=== PATIENT | female | born 1995 | race African-American/Black ===

== ENCOUNTER 2020-11-03 09:02 | Emergency (ER) | payer OTHER ==
--- NOTE | 2020-11-03 09:31 | ER Document Report ---
ED GI/ - General Chief Complaint: Abdominal Pain Stated Complaint: ABDOMINAL CRAMPING Time Seen by Provider: 11/03/20 09:30 Mode of Arrival: Ambulatory Information source: Patient Notes: 25-year-old black female arrives with chief complaint of upper abdominal pain at 08 20 as she was sitting on her couch. Patient is 19 weeks gravid. She is with a 4-year-old and 46-qnihx-yol child at home. She is and she called her [facility] doctor [facility] and they advised her to lay on her left side. Her symptoms resolved. Her symptoms consisted of a 5 out of 10 crampy diffuse pain. No other family members got any Covid symptoms cough or cold or constipation or diarrhea. Past medical history on this patient includes preeclampsia with her last and also asthma as a child and MRSA for right breast lesion many years ago TRAVEL OUTSIDE OF THE [place] IN LAST 30 DAYS: No - HPI Patient complains to provider of: Abdominal pain, . No: Diarrhea, Dysuria, Feeding tube problem, Flank pain, Chris catheter problem, Hematuria, Missed/Late menses, Pelvic pain, Urinary retention, Vaginal bleeding, Vaginal discharge, Vaginal pain, Vomiting Onset: This morning Timing/Duration: Sudden Quality of pain: Achy Severity at maximum: Mild Pain Level: 1 Context: . denies: Bad food, Lifting, Out of the country travel, Recent trauma Location: LUQ, RUQ. No: Chest pain, Epigastric, LLQ, RLQ, Left flank, Right flank, Low back, Suprapubic, Pelvis, Vaginal, Vulvar, Rectal Vaginal bleeding (Compared to normal period): None : 3 Para: 2 - Related Data Allergies/Adverse Reactions: No Known Allergies Allergy (Verified 04/03/15 18:56) Past Medical History - General Information source: Patient - Social History Smoking Status: Never Smoker Cigarette use (# per day): No Chew tobacco use (# tins/day): No Smoking Education Provided: No Frequency of alcohol use: None Drug Abuse: None Lives with: Family Family History: Reviewed & Not Pertinent Patient has suicidal ideation: No Patient has homicidal ideation: No Pulmonary Medical History: Reports: Hx Asthma - Immunizations Hx Diphtheria, Pertussis, Tetanus Vaccination: Yes Review of Systems - Review of Systems Constitutional: See HPI, Weight gain. denies: Chills, Diaphoresis, Fever, Weakness, Weight loss, Recent illness EENT: No symptoms reported Cardiovascular: No symptoms reported Respiratory: No symptoms reported Gastrointestinal: See HPI, Abdominal pain. denies: Diarrhea, Nausea, Vomiting, Constipation Genitourinary: See HPI. denies: Burning, Dysuria, Discharge, Frequency, Flank pain, Hematuria, Incontinence, Pain, Urgency, Retention Female Genitourinary: No symptoms reported Musculoskeletal: No symptoms reported Skin: No symptoms reported Hematologic/Lymphatic: No symptoms reported Neurological/Psychological: No symptoms reported -: Yes All other systems reviewed and negative Physical Exam - Vital signs Vitals: Temp Pulse Resp BP Pulse Ox 98.3 F 109 H 16 132/73 H 97 11/03/20 09:05 11/03/20 09:05 11/03/20 09:05 11/03/20 09:05 11/03/20 09:05 Interpretation: Tachycardic - General General appearance: Appears well, Alert - HEENT Head: Normocephalic, Atraumatic Eyes: Normal Pupils: PERRL - Respiratory Respiratory status: No respiratory distress Chest status: Nontender Breath sounds: Normal Chest palpation: Normal - Cardiovascular Rhythm: Regular Heart sounds: Normal auscultation Murmur: No - Abdominal Inspection: Normal Distension: No distension Bowel sounds: Normal Tenderness: Nontender Organomegaly: No organomegaly - Rectal Hemorrhoids: Other - deferred - Genitourinary External exam: Normal - as per us female - Back Back: Normal, Nontender - Extremities General upper extremity: Normal inspection, Nontender, Normal color, Normal ROM, Normal temperature General lower extremity: Normal inspection, Nontender, Normal color, Normal ROM, Normal temperature, Normal weight bearing. No: All's sign - Neurological Neuro grossly intact: Yes Cognition: Normal Orientation: AAOx4 Norbert Coma Scale Eye Opening: Spontaneous Norbert Coma Scale Verbal: Oriented [place] Coma Scale Motor: Obeys Commands Norbert Coma Scale Total: 15 Speech: Normal Motor strength normal: LUE, RUE, LLE, RLE Sensory: Normal - Psychological Associated symptoms: Normal affect, Normal mood - Skin Skin Temperature: Warm Skin Moisture: Dry Skin Color: Normal Course - Vital Signs Vital signs: Temp Pulse Resp BP Pulse Ox 98.3 F 109 H 16 132/73 H 97 11/03/20 09:05 11/03/20 09:05 11/03/20 09:05 11/03/20 09:05 11/03/20 09:05 - Laboratory Results Result Diagrams: 11/03/20 09:53 11/03/20 09:53 Laboratory Results Interpreted: 11/03/20 11/03/20 11/03/20 09:53 09:53 09:53 Hgb 11.3 L Hct 34.2 L RDW 14.9 H Sodium 135.1 L Total Protein 6.2 L Albumin 3.2 L Urine Urobilinogen 2.0 H Ur Leukocyte Esterase SMALL H Critical Laboratory Results Reviewed: Yes Attending or Supervising Physician who Reviewed Labs: ERIN ABRAHAM JR - Radiology Results Radiology Results Interpreted: 11/03/20 11:47 Dr. Riley radiologist read ultrasound as 18-week 3D live IUP Critical Radiology Results Reviewed: No Critical Results Attending or Supervising Physician who Reviewed Radiology: ERIN ABRAHAM JR Critical Care Note - Critical Care Note Comments: I discussed this case with patient and she appears to understand findings of ultrasound and labs Discharge - Discharge Clinical Impression: Qualifiers: Weeks of gestation: 19 weeks Qualified Code(s): Z3A.19 - 19 weeks gestation of Abdominal pain Qualifiers: Abdominal location: right upper quadrant Qualified Code(s): R10.11 - Right upper quadrant pain UTI (urinary tract infection) Qualifiers: Urinary tract infection type: acute cystitis Hematuria presence: without hematuria Qualified Code(s): N30.00 - Acute cystitis without hematuria Disposition: HOME, SELF-CARE Instructions: Abdominal Pain ([facility]) Additional Instructions: Follow-up with [facility] and return to ER as needed and take medications as direc vicente and encourage fluids like water or cranberry juice. Avoid carbonated soft drinks for least 1 week. Prescriptions: Nitrofurantoin Monohyd/M-Cryst [Macrobid 100 mg Capsule] 100 mg PO BID #10 cap
[2020-11-03 10:18] LABS: ABSOLUTE EOSINOPHILS # (AUTO) 0.1 10^3/uL (0.0-0.6); ABSOLUTE LYMPHOCYTES (AUTO) 1.1 10^3/uL (0.5-4.7); ABSOLUTE MONOCYTES (AUTO) 0.7 10^3/uL (0.1-1.4); ABSOLUTE NEUT (AUTO) 4.9 10^3/uL (1.7-8.2); BASOPHILS % (AUTO) 0.6 % (0-2); EOSINOPHILS % (AUTO) 1.1 % (0-6); HEMATOCRIT 34.2 % (36.0-47.0); HEMOGLOBIN 11.3 g/dL (12.0-15.5); LYMPHOCYTES % (AUTO) 16.2 % (13-45); MEAN CORPUSCULAR HGB CONC 33.1 g/dL (32.0-36.0); MEAN CORPUSCULAR VOLUME 82 fl (80-97); MONOCYTES % (AUTO) 10.9 % (3-13); PLATELET COUNT 186 10^3/uL (150-450); RED BLOOD COUNT 4.19 10^6/uL (3.72-5.28); RED CELL DISTRIBUTION WIDTH 14.9 % (11.5-14.0); SEGMENTED NEUTROPHILS % (AUTO) 71.2 % (42-78); TOTAL CELLS COUNTED % (AUTO) 100 %; WHITE BLOOD COUNT 6.9 10^3/uL (4.0-10.5)
[2020-11-03 10:34] LABS: ALBUMIN 3.2 g/dL (3.5-5.0); ALKALINE PHOSPHATASE 45 U/L (38-126); ANION GAP 6 (5-19); ASPARTATE AMINO TRANSFERASE 16 U/L (14-36); BILIRUBIN,DIRECT 0.1 mg/dL (0.0-0.4); BILIRUBIN,TOTAL 0.3 mg/dL (0.2-1.3); BLOOD UREA NITROGEN 9 mg/dL (7-20); CALCIUM 8.8 mg/dL (8.4-10.2); CARBON DIOXIDE 22 mmol/L (22-30); CHLORIDE 107 mmol/L (98-107); GLUCOSE 87 mg/dL (75-110); POTASSIUM 3.9 mmol/L (3.6-5.0); TOTAL PROTEIN 6.2 g/dL (6.3-8.2)
[2020-11-03 11:20] LABS: APPEARANCE,URINE SLIGHTLY-CLOUDY; BILIRUBIN,URINE NEGATIVE (NEGATIVE); COLOR,URINE YELLOW; GLUCOSE, URINE NEGATIVE (NEGATIVE); KETONES,URINE NEGATIVE (NEGATIVE); LEUKOCYTE ESTERASE,URINE SMALL (NEGATIVE); NITRITE,URINE NEGATIVE (NEGATIVE); PROTEIN,URINE NEGATIVE (NEGATIVE); URINE SPECIFIC GRAVITY 1.026
--- NOTE | 2020-11-03 11:29 | RADIOLOGY REPORT (SQ) ---
EXAM DESCRIPTION: U/S OB 14+ TRNABD 1GES W/O DOP IMAGES COMPLETED DATE/TIME: 11/03/2020 10:49 am REASON FOR STUDY: abd pain pre eclampsia hx COMPARISON: None. TECHNIQUE: Static and Dynamic grayscale imaging performed of gravid uterus using transabdominal appr oach. Additional selected color Doppler and spectral images recorded. All stored on PACS. LIMITATIONS: None. FINDINGS: FETUSES SEEN:1 EGA: 18 weeks 3 days. Calculated using BPD,FL,HC,AC documented on images. No discrepancy with clinic al dates. MATEUS: 04/03/2021 EFW: 239 grams PERCENTILE: Not assessed. LVP: 4.3 x 3.2 cm. PLACENTA: Posterior in location. GRADE: I PRESENTATION: Variable. MATERNAL ADNEXA: Maternal ovaries not visualized. CERVICAL LENGTH: 2.9 cm. Closed. OTHER: Placenta previa. IMPRESSION: LIVING INTRAUTERINE . ESTIMATED GESTATIONAL AGE 18 WEEKS 3 DAYS. PLACENTA PREVIA. FOLLOW-UP STUDIES ARE RECOMMENDED TO INSURE NORMAL MIGRATION. Trimester of : Second trimester - 13 weeks 1 day to 27 weeks 6 days. TECHNICAL DOCUMENTATION: JOB ID: [id number] [employer]- All Rights Reserved Reading location - IP/workstation name: [email or web address]
[2020-11-03] MEDS ORDERED: NITROFURANTOIN MONOHYD/M-CRYST 100 MG CAPSULE PO ONE (11:50)
[2020-11-03 12:34] VITALS: BP 113/78
== END 2020-11-03 12:34 | disposition home or self-care (01) ==
LOC: ER 09:02
DX: O23.12 Infections of bladder in pregnancy, second trimester (principal); O26.892 Other specified pregnancy related conditions, second trimester; R10.11 Right upper quadrant pain; R10.12 Left upper quadrant pain; O26.02 Excessive weight gain in pregnancy, second trimester; O99.512 Diseases of the respiratory system complicating pregnancy, second trimester; J45.909 Unspecified asthma, uncomplicated; Z3A.19 19 weeks gestation of pregnancy
CPT/HCPCS: 99284; 36415; 87086; 84443; 85025; 80053; 81001; 76805; J8499